=== PATIENT | female | born 1970 | race Asian ===

== ENCOUNTER 2023-11-29 06:00 | Day surgery (SDC) | payer OTHER ==
[~2023-11-29] VITALS: Ht 162.6 cm; Wt 61.2 kg
[~2023-11-29 06:00] MED LIST: CEFAZOLIN SOD 2 GM in D5W 50 ML IV ONE
[2023-11-29] MEDS ORDERED: fentaNYL CITRATE/PF 100 MCG/2 ML AMP ONE (07:25)
[2023-11-29] MEDS ORDERED: METOCLOPRAMIDE HCL 10 MG/2 ML VIAL ONE (07:25)
[2023-11-29] MEDS ORDERED: SEVOFLURANE 15 MIN GAS INH ONE (07:25)
[2023-11-29] MEDS ORDERED: ROCURONIUM BROMIDE 10 MG/ML (ZEMURON) ONE (07:25)
[2023-11-29] MEDS ORDERED: ONDANSETRON HCL 4 MG/2 ML VIAL ONE (07:25)
[2023-11-29] MEDS ORDERED: LR 1,000 ML IV.SOLN IV ONE (07:25)
[2023-11-29] MEDS ORDERED: BUPIVACAINE /PF 0.25% 30 ML VIAL INJ ONE (07:25)
[2023-11-29] MEDS ORDERED: PROPOFOL 200MG/ 20ML VIAL (DIPRIVAN) IV ONE (07:25)
[2023-11-29] MEDS ORDERED: DEXAMETHASONE SOD PHOSPHATE 4 MG/ML VIAL ONE (07:25)
[2023-11-29] MEDS ORDERED: MIDAZOLAM HCL 5 MG/5 ML VIAL ONE (07:25)
[2023-11-29] MEDS ORDERED: WATER FOR IRRIGATION,STERILE 1,000 ML IRRIG.SOLN IR ONE (07:25)
[2023-11-29] MEDS ORDERED: NS 500 ML IV.SOLN IV ONE (07:25)
[2023-11-29] MEDS ORDERED: ACETAMINOPHEN I.V. 1000 MG 100 ML IV ONE (07:57)
[2023-11-29] MEDS ORDERED: KETOROLAC TROMETHAMINE 30 MG VIAL IVP PRN (08:30)
[2023-11-29] MEDS ORDERED: HYDROmorphone 2 MG/ML VIAL IVP PRN (08:30)
[2023-11-29] MEDS ORDERED: ONDANSETRON HCL 4 MG/2 ML VIAL IVP PRN (08:30)
[2023-11-29] MEDS ORDERED: LR 1,000 ML IV SCH (08:30)
[2023-11-29] MEDS ORDERED: HYDROcodone/ACETAMIN 5-325 MG TAB (NORCO/ VICODIN) PO PRN ×2 (09:00)
[2023-11-29] MEDS ORDERED: D5/0.45 NS 1,000 ML IV SCH (09:00)
[2023-11-29] MEDS ORDERED: HYDROmorphone 1 MG/ML INJ. CARTRIDGE ONE (09:48)
[2023-11-29] MEDS: HYDROmorphone 1 MG/ML INJ. CARTRIDGE IVP PRN (09:50)
[2023-11-29 10:50] VITALS: O2SAT 100
[2023-11-29 12:02] VITALS: BP_SYST 108; PULSE 72; RESP 17
== END 2023-11-29 11:45 | disposition home or self-care (01) ==
LOC: SMU 06:00 → SDS 06:00
PROVIDERS: ATTEND Colon & Rectal Surgery
DX: K80.12 Calculus of gallbladder with acute and chronic cholecystitis without obstruction (principal); F32.A Depression, unspecified; G43.909 Migraine, unspecified, not intractable, without status migrainosus; E78.00 Pure hypercholesterolemia, unspecified; Z79.899 Other long term (current) drug therapy
CPT/HCPCS: 87081; 47563; 74300; 88304; J3490; J0690; J1100; J2765; J2250; J2405; J2704; J3010; J1170; Q9967; J7060; J7120; J7040; C1727; J0131; 76000